=== PATIENT | female | born 1955 | race Caucasian/White ===

== ENCOUNTER 2019-02-15 11:54 | Observation (INO) | payer MEDICAID, MEDICARE ==
[~2019-02-15] VITALS: Ht 165.1 cm; Wt 76.4 kg
[~2019-02-15 11:54] MED LIST: AMLO10TA13 PO; ARIP5TAB14 PO; ASPI-1071 PO; ASPI-611 PO; FERR325T28 PO; HYDR25TA4 PO; LEVO75TA PO; MILN100T PO; MULT-1085 PO; RABE20TA28 PO; SIMV20TA PO; TEMA15CA PO
[2019-02-15 12:25] LABS: BASOPHILS % (AUTO) 0.7 % (0-1); EOSINOPHILS # (AUTO) 0.1 X10'3 (0-0.9); EOSINOPHILS % (AUTO) 2.1 % (0-6); HEMATOCRIT 38.8 % (35.0-45.0); HEMOGLOBIN 13.2 g/dl (12.0-16.0); LYMPHOCYTES # (AUTO) 1.3 X10'3 (1.1-4.8); LYMPHOCYTES % (AUTO) 26.9 % (21-51); MEAN CORPUSCULAR HGB CONC 34.1 g/dL (33.0-36.5); MEAN PLATELET VOLUME 8.5 FL (7.4-10.4); MONOCYTES # (AUTO) 0.3 X10'3 (0-0.9); MONOCYTES % (AUTO) 6.4 % (2-12); NEUTROPHILS % (AUTO) 63.9 % (42-75); PLATELET COUNT 238 X10'3 (140-440); RED BLOOD COUNT 4.56 X10'6 (4.20-5.60); RED CELL DISTRIBUTION WIDTH 14.2 % (11.5-14.5); WHITE BLOOD COUNT 4.8 X10'3 (4.5-11.0)
[2019-02-15] MEDS ORDERED: nitroGLYCERIN 0.4mg SUBLingual tab SL PRN (12:30)
[2019-02-15 12:41] LABS: ALANINE AMINOTRANSFERASE 23 U/L (12-78); ALBUMIN/GLOBULIN RATIO 1.3 (1.1-1.5); ALKALINE PHOSPHATASE 79 IU/L (46-116); ANION GAP 11 (8-16); ASPARTATE AMINO TRANSFERASE 18 U/L (10-37); BILIRUBIN,TOTAL 0.5 MG/DL (0.1-1.0); BLOOD UREA NITROGEN 15 MG/DL (7-18); BUN/CREATININE RATIO 12.7 (6.6-38.0); CHLORIDE 105 MMOL/L (99-107); CREATININE 1.18 MG/DL (0.40-0.90); GLUCOSE 93 MG/DL (70-104); POTASSIUM 3.6 MMOL/L (3.5-5.1); SODIUM 141 MMOL/L (135-145); TOTAL CARBON DIOXIDE 24.8 MMOL/L (24-32); TOTAL PROTEIN 7.1 G/DL (6.4-8.2); eGFR 46 ML/MIN
[2019-02-15] MEDS ORDERED: ondansetron/PF 4mg/2ml inj IV PRN (12:55)
[2019-02-15] MEDS ORDERED: HYDROmorphone inj. 0.5 MG/0.5 ML DISP.SYRIN IV PRN (12:55)
[2019-02-15] MEDS ORDERED: magnesium hydroxide 30ml (MOM) UD suspension PO PRN (12:55)
[2019-02-15] MEDS ORDERED: mag hydrox/Alum hydrox/simeth 30ml oral suspension PO PRN (12:55)
[2019-02-15] MEDS ORDERED: acetaminophen 325mg tablet PO PRN (12:55)
[2019-02-15] MEDS ORDERED: OMEP40CA13 PO (13:31)
[2019-02-15] MEDS ORDERED: BISA5TAB56 PO (13:31)
[2019-02-15] MEDS ORDERED: CETI10CA PO (13:31)
[2019-02-15] MEDS ORDERED: TRAZ-219 PO (13:31)
[2019-02-15] MEDS ORDERED: VITD400T PO (13:31)
[2019-02-15] MEDS ORDERED: DULO20CA50 PO (13:31)
[2019-02-15 14:00] VITALS: BP 141/72
[2019-02-15] MEDS: normal saline 1000ml 1,000 ML IV SCH ×2 (15:30→22:54)
--- NOTE | 2019-02-15 18:05 | NUR ---
Patient in room MED 307. I have received report from Viv HURT and had the opportunity to ask questions and assume patient care. bedside report completed.
[2019-02-15 18:30] VITALS: BP 123/60
[2019-02-15] MEDS: carVEDilol 3.125mg tablet PO SCH (20:57)
[2019-02-15] MEDS: heparin, porcine 5000 units/ml vial SQ SCH (20:57)
[2019-02-15] MEDS ORDERED: SIMVASTATIN PO SCH (21:00)
[2019-02-15] MEDS: traZODone 150mg tablet PO SCH ×2 (21:07→21:08)
[2019-02-15] MEDS: atorvastatin 20mg tablet PO SCH ×2 (21:07→21:08)
[2019-02-15 22:00] VITALS: BP 123/64
[2019-02-16 00:48] LABS: ALBUMIN 3.1 G/DL (3.4-5.0); ANION GAP 8 (8-16); BLOOD UREA NITROGEN 13 MG/DL (7-18); BUN/CREATININE RATIO 12.7 (6.6-38.0); CALCIUM 8.1 MG/DL (8.5-10.1); CHLORIDE 107 MMOL/L (99-107); CREATININE 1.02 MG/DL (0.40-0.90); GLUCOSE 83 MG/DL (70-104); POTASSIUM 3.5 MMOL/L (3.5-5.1); SODIUM 142 MMOL/L (135-145); eGFR 55 ML/MIN
[2019-02-16] MEDS: normal saline 1000ml 1,000 ML IV SCH (01:07)
[2019-02-16 01:14] LABS: BASOPHILS % (AUTO) 0.7 % (0-1); EOSINOPHILS # (AUTO) 0.1 X10'3 (0-0.9); EOSINOPHILS % (AUTO) 2.5 % (0-6); HEMATOCRIT 31.8 % (35.0-45.0); HEMOGLOBIN 10.9 g/dl (12.0-16.0); LYMPHOCYTES # (AUTO) 1.6 X10'3 (1.1-4.8); LYMPHOCYTES % (AUTO) 39.4 % (21-51); MEAN CORPUSCULAR HEMOGLOBIN 28.8 PG (27.0-31.0); MEAN CORPUSCULAR HGB CONC 34.4 g/dL (33.0-36.5); MEAN CORPUSCULAR VOLUME 83.8 FL (78-98); MEAN PLATELET VOLUME 8.5 FL (7.4-10.4); MONOCYTES # (AUTO) 0.3 X10'3 (0-0.9); NEUTROPHILS # (AUTO) 2.1 X10'3 (1.8-7.7); NEUTROPHILS % (AUTO) 50.4 % (42-75); PLATELET COUNT 202 X10'3 (140-440); RED CELL DISTRIBUTION WIDTH 14.1 % (11.5-14.5); WHITE BLOOD COUNT 4.1 X10'3 (4.5-11.0)
[2019-02-16 02:00] VITALS: BP 115/59
[2019-02-16 06:00] VITALS: BP 110/59
--- NOTE | 2019-02-16 06:15 | NUR ---
Patient in room MED 307. I have received report from BLU Cheung and had the opportunity to ask questions and assume patient care.
[2019-02-16] MEDS ORDERED: aspirin 81mg tablet.DR PO SCH (08:00)
[2019-02-16] MEDS ORDERED: levoTHYROXINE 75mcg tablet PO SCH (08:00)
[2019-02-16] MEDS ORDERED: duloxetine 20mg capsule.DR PO SCH (08:00)
[2019-02-16] MEDS ORDERED: cholecalciferol (vitamin D) 400 unit tablet PO SCH (08:00)
[2019-02-16] MEDS ORDERED: cetirizine 10mg tablet PO SCH (08:00)
[2019-02-16] MEDS ORDERED: pantoprazole 40mg Tablet.DR PO SCH (08:00)
[2019-02-16] MEDS ORDERED: amLODIPine 5mg tablet PO SCH (08:00)
[2019-02-16] MEDS ORDERED: ferrous sulfate 325mg tablet PO SCH (08:00)
[2019-02-16] MEDS ORDERED: aspirin 81mg tab.chew PO SCH (08:30)
[2019-02-16] MEDS: carVEDilol 3.125mg tablet PO SCH (09:31)
[2019-02-16] MEDS: heparin, porcine 5000 units/ml vial SQ SCH (09:36)
[2019-02-16 11:00] VITALS: BP 111/55
--- NOTE | 2019-02-16 12:46 | NUR ---
PAGER ID: [phone] MESSAGE: Dr. Wei-need clarification on med orders for d/c on pt in 307 on [facility]. Waiting to discharge but [facility] was not put in d/c orders. Please advise or correct. Thank you, Marilou Johnson RN [id number]
--- NOTE | 2019-02-16 13:58 | NUR ---
Patient is discharged. All discharge instructions gone over with the patient. Answered patient questions and checked patient room for all belongings. PIV taken out, catheter intact. Patient tolerated well. Patient left in a wheel chair with auxillary volunteer. All patient belonging taken with the patient. Patient was alert and oriented and in a stable condition.
[2019-02-17] MEDS ORDERED: bisacodyl 5mg tablet.DR PO SCH (08:00)
== END 2019-02-16 13:56 | disposition home or self-care (01) ==
LOC: ER 11:54 → ED HOLD 13:30 → MED 3N 14:13
PROVIDERS: ADMIT Family Medicine; ATTEND Family Medicine
DX: R07.89 Other chest pain (principal); I10 Essential (primary) hypertension; E78.5 Hyperlipidemia, unspecified; E03.9 Hypothyroidism, unspecified; F32.9 Major depressive disorder, single episode, unspecified; M79.7 Fibromyalgia; E78.00 Pure hypercholesterolemia, unspecified; I25.10 Atherosclerotic heart disease of native coronary artery without angina pectoris; Z90.89 Acquired absence of other organs; Z90.5 Acquired absence of kidney; Z90.49 Acquired absence of other specified parts of digestive tract; Z79.82 Long term (current) use of aspirin; Z79.899 Other long term (current) drug therapy; Z88.5 Allergy status to narcotic agent; Z88.0 Allergy status to penicillin; Z88.1 Allergy status to other antibiotic agents; Z88.6 Allergy status to analgesic agent
CPT/HCPCS: 36415; 71045; 80048; 80053; 83735; 84484; 85025; 87081; 93005; 93306; 96372; 99284; G0378; J1644; J7030